=== PATIENT | male | born 1960 | race Caucasian/White ===

== ENCOUNTER 2022-07-25 13:24 | Emergency (ER) | payer BC, SELFPAY ==
[2022-07-25] VITALS (8 sets, daily range): BP systolic 86–168; BP diastolic 43–98; PULSE 64–76; RESP 20–22; TEMP 36.5; O2SAT 95–100; BMI 36.5
--- NOTE | 2022-07-25 13:35 | XR_ITS ---
PROCEDURE INFORMATION: Exam: XR Right Ankle Exam date and time: 07/25/2022 1:59 PM Age: 62 years old Clinical indication: Injury or trauma; Fall; Blunt trauma; Ankle; Right; Additional info: Pain-- fall trauma fell off tractor TECHNIQUE: Imaging protocol: Radiologic exam of the Right ankle. Views: 1 or 2 views. COMPARISON: No relevant prior studies available. FINDINGS: Bones/joints: Comminuted fracture through the distal fibula, above the syndesmosis, consistent with a Tapia C distal fibular fracture. The ankle mortise appears in tact. Small plantar calcaneal enthesophyte. Soft tissues: Moderate soft tissue swelling surrounding the ankle. IMPRESSION: Comminuted fracture through the distal fibula, above the syndesmosis, consistent with a Tapia C distal fibular fracture. The ankle mortise appears in tact. Moderate soft tissue swelling surrounding the ankle.
--- NOTE | 2022-07-25 13:47 | PC.NURSE ---
Pt boot cut off and ice applied
--- NOTE | 2022-07-25 13:51 | PC.NURSE ---
Rad aware of orders
--- NOTE | 2022-07-25 13:59 | XR_ITS ---
PROCEDURE INFORMATION: Exam: XR Right Foot Exam date and time: 07/25/2022 2:02 PM Age: 62 years old Clinical indication: Injury or trauma; Fall; Blunt trauma; Lower leg; Right; Additional info: Fell TECHNIQUE: Imaging protocol: Radiologic exam of the Right foot. Views: 3 or more views. COMPARISON: CR XR TIBIA FIBULA RT 2V 07/25/2022 1:59 PM FINDINGS: Bones/joints: No acute fracture in the foot. Partially visualized comminuted fracture through the distal fibula, above the syndesmosis, consistent with a Tapia C distal fibular fracture. No proximal tibia or fibular fracture. The ankle mortise appears in tact. Small plantar calcaneal enthesophyte. Soft tissues: There is moderate soft tissue swelling surrounding the ankle. IMPRESSION: No acute fracture in the foot. Partially visualized comminuted fracture through the distal fibula, above the syndesmosis, consistent with a Tapia C distal fibular fracture.
--- NOTE | 2022-07-25 13:59 | XR_ITS ---
PROCEDURE INFORMATION: Exam: XR Right Tibia and Fibula Exam date and time: 07/25/2022 1:59 PM Age: 62 years old Clinical indication: Injury or trauma; Fall; Blunt trauma; Lower leg; Right; Additional info: Fell TECHNIQUE: Imaging protocol: Radiologic exam of the Right tibia and fibula. Views: 2 views. COMPARISON: CR XR ANKLE RT 2V 07/25/2022 1:59 PM FINDINGS: Bones/joints: Comminuted fracture through the distal fibula, above the syndesmosis, consistent with a Tapia C distal fibular fracture. No proximal tibia or fibular fracture. The ankle mortise appears in tact. Small plantar calcaneal enthesophyte. Soft tissues: There is moderate soft tissue swelling surrounding the ankle. IMPRESSION: 1. Comminuted fracture through the distal fibula, above the syndesmosis, consistent with a Tapia C distal fibular fracture. No proximal tibia or fibular fracture. The ankle mortise appears in tact. 2. There is moderate soft tissue swelling surrounding the ankle.
--- NOTE | 2022-07-25 13:59 | XR_ITS ---
PROCEDURE INFORMATION: Exam: XR Right Knee Exam date and time: 07/25/2022 2:01 PM Age: 62 years old Clinical indication: Injury or trauma; Fall; Blunt trauma; Ankle; Right; Additional info: Fell TECHNIQUE: Imaging protocol: Radiologic exam of the Right knee. Views: 3 views. COMPARISON: CR XR TIBIA FIBULA RT 2V 07/25/2022 1:59 PM FINDINGS: Bones/joints: Normal. Soft tissues: Normal. IMPRESSION: No acute findings.
--- NOTE | 2022-07-25 14:26 | [facility].EDGENADL ---
Discharge Plan Disposition Patient Disposition: Home, Self-Care Prescriptions Prescriptions: New oxycodone 5 mg tablet 5 mg PO Q6H PRN (Reason: severe pain (scale score 7-10)) Qty: 8 0RF Referrals Follow up/Referrals: Moody Rodríguez DO [Staff Physician] - See instructions Activity Restrictions/Add. Instructions Additional Instructions/Restrictions: At this time was felt you are safe to be discharged home. If new or worsening symptoms please do not hesitate to return the emergency department. Please take your medications as prescribed. Do not bear weight until you are seen by orthopedics. Please call and schedule an appointment with Dr. Juan Alberto Rodríguez early next week. Clinical Impressions Clinical Impression: Closed fibular fracture Discharge ED Provider: Narendra Armstrong General Adult HPI General Chief complaint: Fall Stated complaint: AO [id number] 12:55,right ankle pain Time Seen by Provider: 07/25/22 14:26 Mode of Arrival: Wheelchair Source of Information: Patient Limitations: No Limitations Description of Symptoms (Recalled from ER Triage Doc. by RN): PT STATES HE WAS GETTING DOWN OUT A TRACTOR WHEN HE MISSED THE 2ND STEP AND LANDED ON HIS R ANKLE WRONG, DENIES LOC History of Present Illness HPI narrative: Patient is a previously healthy 8-year-old male who presents emergency department for evaluation traumatic injury sustained to his ankle. Patient was getting out of a tractor when he rolled it on the step and it became caught causing him to fall to the dirt. Patient denies loss of consciousness or other traumatic injuries. He complains of moderate to severe pain at his ankle, worse with mobility and bearing weight. No other acute complaints at this time. Related Data Previous Rx's Medication Instructions Recorded oxycodone 5 mg tablet 5 mg PO Q6H PRN severe pain (scale 07/25/22 score 7-10) #8 tabs Allergies Allergy/AdvReac Type Severity Reaction Status Date / Time No Known Allergies Allergy Verified 07/25/22 13:51 [facility] Medical History No significant past medical history Social History Smoking Status: Never smoker alcohol intake: never current occupational status: employed Travel in the last 8 weeks: None ROS Obtained: Yes Systems reviewed as appropriate & no additional complaints except as documented Physical Exam General General appearance: alert and in no apparent distress Head Head exam: atraumatic and normocephalic Eye Eye exam: Present PERRL and EOMI ENT ENT exam: Present mucous membranes moist Neck Neck exam: Present normal inspection Chest Chest inspection: Present normal inspection and symmetric chest wall rise Respiratory Respiratory exam: Present normal lung sounds bilaterally; Absent respiratory distress Cardiovascular Cardiovascular exam: Present regular rate and normal rhythm Abdominal Exam Abdominal exam: Present soft Extremities Exam Extremities exam: Present normal inspection and other (Edema and tenderness of the right ankle, no open wounds. Limited range of motion at the ankle secondary to pain. Sensation intact light touch distally, 2+ dorsal pedal pulse on the right.) Neurological Exam Neurological exam: Present alert and oriented X3 Psychiatric Psychiatric exam: Present normal affect Skin Skin exam: Present warm and dry Medical Decision Making Kenny Inquiry Pt receiving controlled substance: Yes Kenny was queried for this patient: Yes Risks and benefits of using a controlled substance: were not discussed with pt by me Vital Signs: 07/25/22 13:28 07/25/22 13:43 07/25/22 13:48 Temperature 97.7 F Temperature Source Oral Pulse Rate 64 73 Pulse Rate [Right Radial] 67 Respiratory Rate 20 20 20 Blood Pressure 86/43 L 95/59 L Blood Pressure [Right Arm] 89/52 L Blood Pressure Mean 58 70 Blood Pressure Mean [Right Arm] 64 Blood Pressure Source [Right Arm] Automati
--- NOTE | 2022-07-25 14:37 | PC.NURSE ---
rounded on pt he denies any new complaints at this time. states his pain is under control at this time.
--- NOTE | 2022-07-25 14:49 | PC.NURSE ---
ortho marketing community liaison paged for CHIQUITA
--- NOTE | 2022-07-25 14:50 | PC.NURSE ---
ortho returned call
--- NOTE | 2022-07-25 15:13 | PC.NURSE ---
orthoglass applied to pts injured extremity.
== END 2022-07-25 15:38 | disposition home or self-care (01) ==
PROVIDERS: Emergency Provider Emergency Medicine
DX: S82.831A Other fracture of upper and lower end of right fibula, initial encounter for closed fracture (principal); X58.XXXA Exposure to other specified factors, initial encounter
CPT/HCPCS: 73562; 73590; 73600; 73630; 96374; 99284

== ENCOUNTER 2022-11-19 07:00 | Outpatient (RCR) | payer BC, SELFPAY | END 2022-11-26 16:20 | disposition home or self-care (01) | LOC: PT 07:00 | PROVIDERS: Visit Provider Podiatrist Foot & Ankle Surgery | DX: S82.401A Unspecified fracture of shaft of right fibula, initial encounter for closed fracture (principal) | CPT/HCPCS: 97010; 97014; 97033; 97035; 97110; 97112; 97140; 97163; 97164; 97530; G0283 ==